=== PATIENT | male | born 1945 | race Caucasian/White ===

== ENCOUNTER → 2019-01-31 | Outpatient (CLI) | payer MEDICARE, OTHER ==
[~2019-01-31] MED LIST: REGADENOSON 0.4 MG/5 ML SYRINGE IV ONE
--- NOTE | 2019-01-31 11:09 | NM ---
EXAMINATION TYPE: NM stress lexiscan cardiolite DATE OF EXAM: 01/31/2019 COMPARISON: NONE HISTORY: Abnormal EKG TECHNIQUE: After the intravenous administration of 10.33 mCi Tc 99m Sestamibi - Cardiolite resting S PECT images acquired 65 minutes post injection. The patient received 0.4mg Lexiscan, 26.2 mCi Tc 99m Sestamibi - Stress images obtained [address] injection FINDINGS: Review of stress and rest SPECT images demonstrates no distinct perfusion abnormality. Gated analysi s shows normal wall motion with an estimated left ventricular ejection fraction of 54 %. IMPRESSION: No scintigraphic evidence for reversible ischemia.
--- NOTE | 2019-01-31 11:26 | EST ---
EXERCISE STRESS AGE: 73 SEX: M HT: 70" WT: 219 PROTOCOL: Lexiscan Cardiolite Study HEART RATE REST: 50 BLOOD PRESSURE REST: 157/89 MAXIMUM HEART RATE ACHIEVED: 62 MAXIMUM BLOOD PRESSURE: 138//83 INDICATIONS: Abnormal EKG CLINICAL INFORMATION: Baseline EKG revealed sinus mechanism with inferolateral ST and T-wave abnormality. With Lexiscan administration, heart rate changed from 50 to 62 beats per minute blood pressure changed from 157/89 to 138/83. Patient had transient shortness of breath and EKG remained inconclusive. By EKG criteria, this is an inconclusive Lexiscan stress test because of resting EKG changes. The nuclear scan results will be reported by the radiologist. MMENRIQUEL / IJN: [id number] /
== END | disposition home or self-care (01) ==
LOC: RADNMMAIN 07:31
PROVIDERS: ATTEND Internal Medicine
DX: R94.31 Abnormal electrocardiogram [ECG] [EKG] (principal)
CPT/HCPCS: 93017; 78452; A9500; J2785

== ENCOUNTER 2020-05-17 17:21 | Inpatient (IN) | payer MEDICARE ==
--- NOTE | 2020-05-17 17:43 | ED ---
General Adult HPI - General Chief complaint: Weakness Stated complaint: bradycardia Time Seen by Provider: 05/17/20 17:30 Source: patient, EMS Mode of arrival: EMS Limitations: no limitations - History of Present Illness Initial comments: Patient presents the ED by ambulance for evaluation. Patient states that he felt weak and lightheaded while in his bathroom this evening, so he laid down on the floor and his called for an ambulance for him. Patient smells of alcohol, and he admits to drinking "a couple glasses of wine" today. Patient denies any illicit drug use. Patient denies having any pain. Patient denies trauma or fall, fever or chills, headache, focal numbness/weakness/neuro deficit, visual changes, neck/back/extremity pain, chest pain, dyspnea, cough or cold symptoms, palpitations, syncope, abdominal pain, nausea/vomiting/diarrhea, bloody or melanotic stool, dysuria or urinary symptoms, or any other symptoms or complaints. Patient's blood glucose was within normal limits per EMS. - Related Data Home Medications Medication Instructions Recorded Confirmed Ascorbic Acid [Vitamin C] 500 mg PO DAILY 05/17/20 05/17/20 Atorvastatin Calcium [Lipitor] 20 mg PO DAILY 05/17/20 05/17/20 Cholecalciferol [Vitamin D3 (25 25 mcg PO BID 05/17/20 05/17/20 Mcg = 1000 Iu)] Metoprolol Tartrate [Lopressor] 50 mg PO BID 05/17/20 05/17/20 Telmisartan [Micardis] 40 mg PO DAILY 05/17/20 05/17/20 diphenhydrAMINE [Benadryl] 25 mg PO HS PRN 05/17/20 05/17/20 hydrALAZINE HCL [Apresoline] 50 mg PO BID 05/17/20 05/17/20 Allergies Allergy/AdvReac Type Severity Reaction Status Date / Time No Known Allergies Allergy Verified 05/17/20 19:16 Review of Systems ROS Statement: Those systems with pertinent positive or pertinent negative responses have been documented in the HPI. ROS Other: All systems not noted in ROS Statement are negative. Past Medical History Past Medical History: Hypertension History of Any Multi-Drug Resistant Organisms: None Reported Past Surgical History: No Surgical Hx Reported Past Psychological History: No Psychological Hx Reported Smoking Status: Never smoker Past Alcohol Use History: Daily, Heavy Past Drug Use History: None Reported General Exam Limitations: no limitations General appearance: alert, in no apparent distress, appears intoxicated, other (patient smells of alcohol) Head exam: Present: atraumatic, normocephalic Eye exam: Present: PERRL, EOMI ENT exam: Present: mucous membranes moist, TM's normal bilaterally Neck exam: Present: other (trachea is in midline). Absent: tenderness, m eningismus Respiratory exam: Present: normal lung sounds bilaterally. Absent: respiratory distress, wheezes, rales, rhonchi, stridor Cardiovascular Exam: Present: regular rate, normal rhythm, normal heart sounds, other (normal radial pulses bilaterally) GI/Abdominal exam: Present: soft. Absent: distended, tenderness, guarding Rectal exam: Present: normal inspection, normal rectal tone, other (Brown stool is noted in rectal vault). Absent: tenderness Extremities exam: Present: full ROM. Absent: tenderness, pedal edema, calf tenderness Back exam: Present: normal inspection. Absent: tenderness Neurological exam: Present: alert, oriented X3, CN II-XII intact. Absent: motor sensory deficit Psychiatric exam: Present: normal affect, normal mood Skin exam: Present: warm, dry, intact, normal color Course Vital Signs 05/17/20 05/17/20 05/17/20 17:25 17:31 18:00 Temperature 97.6 F Pulse Rate 68 62 Respiratory 20 19 Rate Blood Pressure 104/67 113/68 O2 Sat by Pulse 95 96 98 Oximetry 05/17/20 18:30 Temperature Pulse Rate 64 Respiratory 18 Rate Blood Pressure 110/69 O2 Sat by Pulse 96 Oximetry - Reevaluation(s) Reevaluation #1: 05/17/20 19:40 Case, H&P, test results and ED management were discussed with Dr. Hui. He accepts hospital admission. He agrees with GI consultation. He has no further recommendations at this time. 05/17/20 19:47 Patient remains alert and breathing comfortably. Patient remains hemodynamicall y stable. Patient denies development of any new symptoms while in the ED. Patient is aware of his test results, and he agrees with hospital admission at this time. EKG Findings - EKG Comments: EKG Findings:: sinus rhythm with first-degree AV block, ventricular rate of 65 bpm, no ectopy, VT interval of 210 ms, normal QRS duration, QTc interval of 474 ms, normal axis, nonspecific T-wave abnormality Medical Decision Making - Medical Decision Making I suspect that the patient's weakness/lightheadedness is likely secondary to a combination of anemia and alcohol intoxication. The etiology of the patient's anemia is unclear at this time. Patient denies having any bloody or melanotic bowel movements, and his stool Hemoccult is negative. Still, I suspect that a slower or chronic GI bleed is quite likely. Patient has been hemodynamically stable while in the ED. Patient has been hydrated with IV fluids in the ED, and a transfusion for packed RBCs has been ordered. Dr. Hui has accepted hospital admission, and an order for GI consultation was placed. - Lab Data Result diagrams: 05/17/20 18:03 05/17/20 18:03 Lab Results 05/17/20 05/17/20 05/17/20 Range/Units 18:03 18:03 18:03 WBC 7.6 (3.8-10.6) k/uL RBC 2.00 L (4.30-5.90) m/uL Hgb 6.5 L* (13.0-17.5) gm/dL Hct 19.2 L* (39.0-53.0) % MCV 95.6 (80.0-100.0) fL MCH 32.3 (25.0-35.0) pg MCHC 33.8 (31.0-37.0) g/dL RDW 12.6 (11.5-15.5) % Plt Count 383 (150-450) k/uL MPV 7.4 Neutrophils % 58 % Lymphocytes % 32 % Monocytes % 4 % Eosinophils % 2 % Basophils % 1 % Neutrophils # 4.4 (1.3-7.7) k/uL Lymphocytes # 2.4 (1.0-4.8) k/uL Monocytes # 0.3 (0-1.0) k/uL Eosinophils # 0.2 (0-0.7) k/uL Basophils # 0.1 (0-0.2) k/uL PT 10.7 (9.0-12.0) sec INR 1.0 (<1.2) APTT 21.4 L (22.0-30.0) sec Sodium 138 (137-145) mmol/L Potassium 3.7 (3.5-5.1) mmol/L Chloride 106 (98-107) mmol/L Carbon Dioxide 24 (22-30) mmol/L Anion Gap 8 mmol/L BUN 13 (9-20) mg/dL Creatinine 0.99 (0.66-1.25) mg/dL Est GFR (CKD-EPI)AfAm 87 (>60 ml/min/1.73 sqM) Est GFR (CKD-EPI)NonAf 75 (>60 ml/min/1.73 sqM) Glucose 111 H (74-99) mg/dL Plasma Lactic Acid Loki (0.7-2.0) mmol/L Calcium 7.8 L (8.4-10.2) mg/dL Magnesium 1.9 (1.6-2.3) mg/dL Total Bilirubin 0.5 (0.2-1.3) mg/dL AST 28 (17-59) U/L ALT 14 (4-49) U/L Alkaline Phosphatase 74 (38-126) U/L Troponin I (0.000-0.034) ng/mL NT-Pro-B Natriuret Pep pg/mL Total Protein 6.2 L (6.3-8.2) g/dL Albumin 3.1 L (3.5-5.0) g/dL Stool Occult Blood (Negative) Serum Alcohol 214 H* mg/dL Blood Type Recheck Bld Type Recheck Status Spec Expiration Date 05/17/20 05/17/20 05/17/20 Range/Units 18:03 18:03 18:03 WBC (3.8-10.6) k/uL RBC (4.30-5.90) m/uL Hgb (13.0-17.5) gm/dL Hct (39.0-53.0) % MCV (80.0-100.0) fL MCH (25.0-35.0) pg MCHC (31.0-37.0) g/dL RDW (11.5-15.5) % Plt Count (150-450) k/uL MPV Neutrophils % % Lymphocytes % % Monocytes % % Eosinophils % % Basophils % % Neutrophils # (1.3-7.7) k/uL Lymphocytes # (1.0-4.8) k/uL Monocytes # (0-1.0) k/uL Eosinophils # (0-0.7) k/uL Basophils # (0-0.2) k/uL PT (9.0-12.0) sec INR (<1.2) APTT (22.0-30.0) sec Sodium (137-145) mmol/L Potassium (3.5-5.1) mmol/L Chloride (98-107) mmol/L Carbon Dioxide (22-30) mmol/L Anion Gap mmol/L BUN (9-20) mg/dL Creatinine (0.66-1.25) mg/dL Est GFR (CKD-EPI)AfAm (>60 ml/min/1.73 sqM) Est GFR (CKD-EPI)NonAf (>60 ml/min/1.73 sqM) Glucose (74-99) mg/dL Plasma Lactic Acid Loki 2.7 H* (0.7-2.0) mmol/L Calcium (8.4-10.2) mg/dL Magnesium (1.6-2.3) mg/dL Total Bilirubin (0.2-1.3) mg/dL AST (17-59) U/L ALT (4-49) U/L Alkaline Phosphatase (38-126) U/L Troponin I <0.012 (0.000-0.034) ng/mL NT-Pro-B Natriuret Pep 166 pg/mL Total Protein (6.3-8.2) g/dL Albumin (3.5-5.0) g/dL Stool Occult Blood (Negative) Serum Alcohol mg/dL Blood Type Recheck Bld Type Recheck Status Spec Expiration Date 05/17/20 05/17/20 Range/Units 18:48 19:06 WBC (3.8-10.6) k/uL RBC (4.30-5.90) m/uL Hgb (13.0-17.5) gm/dL Hct (39.0-53.0) % MCV (80.0-100.0) fL MCH (25.0-35.0) pg MCHC (31.0-37.0) g/dL RDW (11.5-15.5) % Plt Count (150-450) k/uL MPV Neutrophils % % Lymphocytes % % Monocytes % % Eosinophils % % Basophils % % Neutrophils # (1.3-7.7) k/uL Lymphocytes # (1.0-4.8) k/uL Monocytes # (0-1.0) k/uL Eosinophils # (0-0.7) k/uL Basophils # (0-0.2) k/uL PT (9.0-12.0) sec INR (<1.2) APTT (22.0-30.0) sec Sodium (137-145) mmol/L Potassium (3.5-5.1) mmol/L Chloride (98-107) mmol/L Carbon Dioxide (22-30) mmol/L Anion Gap mmol/L BUN (9-20) mg/dL Creatinine (0.66-1.25) mg/dL Est GFR (CKD-EPI)AfAm (>60 ml/min/1.73 sqM) Est GFR (CKD-EPI)NonAf (>60 ml/min/1.73 sqM) Glucose (74-99) mg/dL Plasma Lactic Acid Loki (0.7-2.0) mmol/L Calcium (8.4-10.2) mg/dL Magnesium (1.6-2.3) mg/dL Total Bilirubin (0.2-1.3) mg/dL AST (17-59) U/L ALT (4-49) U/L Alkaline Phosphatase (38-126) U/L Troponin I (0.000-0.034) ng/mL NT-Pro-B Natriuret Pep pg/mL Total Protein (6.3-8.2) g/dL Albumin (3.5-5.0) g/dL Stool Occult Blood Negative (Negative) Serum Alcohol mg/dL Blood Type Recheck No Previous Record Bld Type Recheck Status CABO Indicated Spec Expiration Date 05/20/20202349 Disposition Clinical Impression: Generalized weakness, Anemia, Alcohol intoxication Disposition: ADMITTED IP TO THIS HOSP Condition: Stable Is patient prescribed a controlled substance at d/c from ED?: No Referrals: Swapnil Hui MD [Primary Care Provider] - 1-2 days Time of Disposition: 19:40
[2020-05-17] MEDS ORDERED: SODIUM CHLORIDE 0.9% 500 ML 500 ML IV STA (17:49)
[2020-05-17 18:15] LABS: Basophils # (A) 0.1 k/uL (0-0.2); Basophils % (A) 1 %; Eosinophils # (A) 0.2 k/uL (0-0.7); Eosinophils % (A) 2 %; Lymphocytes # (A) 2.4 k/uL (1.0-4.8); Lymphocytes % (A) 32 %; MCH 32.3 pg (25.0-35.0); MCHC 33.8 g/dL (31.0-37.0); MCV 95.6 fL (80.0-100.0); Mean Platelet Volume 7.4; Monocytes # (A) 0.3 k/uL (0-1.0); Monocytes % (A) 4 %; Neutrophils # (A) 4.4 k/uL (1.3-7.7); Neutrophils % (A) 58 %; Platelet Count 383 k/uL (150-450); RDW 12.6 % (11.5-15.5); WBC 7.6 k/uL (3.8-10.6)
[2020-05-17 18:20] LABS: HCT 19.2 % (39.0-53.0); HGB 6.5 gm/dL (13.0-17.5)
[2020-05-17] MEDS ORDERED: PANTOPRAZOLE 40 MG/10 ML VIAL IVP STA (18:27)
[2020-05-17 18:34] LABS: Partial Thromboplastin Time 21.4 sec (22.0-30.0); Prothrombin Time 10.7 sec (9.0-12.0)
[2020-05-17 18:36] LABS: Albumin 3.1 g/dL (3.5-5.0); Calcium 7.8 mg/dL (8.4-10.2); Magnesium 1.9 mg/dL (1.6-2.3); Potassium 3.7 mmol/L (3.5-5.1); Total Bilirubin 0.5 mg/dL (0.2-1.3); Total Protein 6.2 g/dL (6.3-8.2)
--- NOTE | 2020-05-17 18:47 | XR ---
EXAMINATION TYPE: XR chest 1V portable DATE OF EXAM: 05/17/2020 COMPARISON: NONE HISTORY: Weakness TECHNIQUE: Single view FINDINGS: There is no heart failure nor confluent pneumonic infiltrate. Costophrenic angles are clear . There are no hilar masses. There are chest leads. IMPRESSION: No active cardiopulmonary disease. Normal heart.
--- NOTE | 2020-05-17 18:56 | CT ---
EXAMINATION TYPE: CT brain wo con DATE OF EXAM: 05/17/2020 COMPARISON: None HISTORY: Weakness. CT DLP: 1277.4 mGycm Automated exposure control for dose reduction was used. There is cerebral cortical atrophy. There is no mass effect nor midline shift. There is no sign of in tracranial hemorrhage. Calvarium is intact. There is normal aeration of the mastoid sinuses. IMPRESSION: Negative exam. Cerebral atrophy. No acute intracranial abnormality.
[2020-05-17] MEDS: SODIUM CHLORIDE 0.9% 1,000 ML IV SCH (19:45)
[2020-05-17 20:01] LABS: Appearance,Urine Clear (Clear); Bilirubin,Urine Negative (Negative); Blood,Urine Negative (Negative); Color,Urine Light Yellow; Glucose,Urine (UA) Negative (Negative); Ketones,Urine Negative (Negative); Leukocyte Esterase,Urine Negative (Negative); Nitrite,Urine Negative (Negative); Protein,Urine Negative (Negative); Urobilinogen,Urine <2.0 mg/dL (<2.0)
[2020-05-17] MEDS ORDERED: diphenhydrAMINE 25 MG CAP PO PRN (22:59)
[2020-05-17] MEDS: hydrALAZINE HCL 50 MG TAB PO SCH (23:27)
[2020-05-17] MEDS: CHOLECALCIFEROL 25 MCG (1000 IU) TABLET PO SCH (23:27)
[2020-05-17] MEDS: METOPROLOL TARTRATE 50 MG TAB PO SCH (23:27)
[2020-05-18 01:55] LABS: Basophils % (A) 0 %; Eosinophils # (A) 0.1 k/uL (0-0.7); Eosinophils % (A) 1 %; HGB 14.7 gm/dL (13.0-17.5); Lymphocytes # (A) 1.4 k/uL (1.0-4.8); Lymphocytes % (A) 21 %; MCH 31.5 pg (25.0-35.0); MCHC 32.7 g/dL (31.0-37.0); MCV 96.3 fL (80.0-100.0); Mean Platelet Volume 7.6; Monocytes # (A) 0.3 k/uL (0-1.0); Monocytes % (A) 5 %; Neutrophils # (A) 4.7 k/uL (1.3-7.7); Neutrophils % (A) 71 %; Platelet Count 245 k/uL (150-450); RBC 4.67 m/uL (4.30-5.90); RDW 12.9 % (11.5-15.5); WBC 6.7 k/uL (3.8-10.6)
[2020-05-18] MEDS: SODIUM CHLORIDE 0.9% 1,000 ML IV SCH (07:03)
[2020-05-18 08:09] LABS: Basophils % (A) 0 %; Eosinophils # (A) 0.1 k/uL (0-0.7); Eosinophils % (A) 1 %; Lymphocytes # (A) 1.5 k/uL (1.0-4.8); Lymphocytes % (A) 18 %; MCH 31.1 pg (25.0-35.0); MCHC 32.6 g/dL (31.0-37.0); MCV 95.4 fL (80.0-100.0); Mean Platelet Volume 7.6; Monocytes # (A) 0.5 k/uL (0-1.0); Monocytes % (A) 6 %; Neutrophils # (A) 5.8 k/uL (1.3-7.7); Neutrophils % (A) 72 %; Platelet Count 250 k/uL (150-450); RBC 4.93 m/uL (4.30-5.90); RDW 13.4 % (11.5-15.5)
[2020-05-18 08:17] LABS: HGB 15.3 gm/dL (13.0-17.5)
[2020-05-18 08:18] LABS: ALT 16 U/L (4-49); AST 30 U/L (17-59); African American GFR (CKD) >90 (>60 ml/min/1.73 sqM); Albumin 3.7 g/dL (3.5-5.0); Alkaline Phosphatase 92 U/L (38-126); Anion Gap 9 mmol/L; Blood Urea Nitrogen 12 mg/dL (9-20); Calcium 8.8 mg/dL (8.4-10.2); Carbon Dioxide 24 mmol/L (22-30); Chloride 106 mmol/L (98-107); Glucose 97 mg/dL (74-99); Non-African American GFR(CKD) 81 (>60 ml/min/1.73 sqM); Potassium 4.2 mmol/L (3.5-5.1); Sodium 139 mmol/L (137-145); Total Bilirubin 1.4 mg/dL (0.2-1.3); Total Protein 7.1 g/dL (6.3-8.2)
[2020-05-18] MEDS: ASCORBIC ACID 500 MG TAB PO SCH (08:53)
[2020-05-18] MEDS: METOPROLOL TARTRATE 50 MG TAB PO SCH ×2 (08:53→20:32)
[2020-05-18] MEDS: CHOLECALCIFEROL 25 MCG (1000 IU) TABLET PO SCH ×2 (08:53→20:32)
[2020-05-18] MEDS: hydrALAZINE HCL 50 MG TAB PO SCH ×2 (08:53→20:32)
[2020-05-18] MEDS: LOSARTAN 50 MG TAB PO SCH (08:53)
[2020-05-18] MEDS: ATORVASTATIN 20 MG TAB PO SCH (08:54)
[2020-05-18 15:23] LABS: Basophils % (A) 1 %; Eosinophils # (A) 0.1 k/uL (0-0.7); Eosinophils % (A) 1 %; HCT 46.3 % (39.0-53.0); HGB 15.1 gm/dL (13.0-17.5); Lymphocytes # (A) 1.8 k/uL (1.0-4.8); Lymphocytes % (A) 22 %; MCH 31.1 pg (25.0-35.0); MCHC 32.6 g/dL (31.0-37.0); MCV 95.4 fL (80.0-100.0); Mean Platelet Volume 7.3; Monocytes # (A) 0.5 k/uL (0-1.0); Monocytes % (A) 5 %; Neutrophils # (A) 5.8 k/uL (1.3-7.7); Neutrophils % (A) 69 %; Platelet Count 236 k/uL (150-450); RBC 4.85 m/uL (4.30-5.90); WBC 8.4 k/uL (3.8-10.6)
--- NOTE | 2020-05-18 15:29 | P.HPIM ---
History of Present Illness H&P Date: 05/18/20 Chief Complaint: Presyncope. This is a 74-year-old male one of my patient with a previous medical history significant for hypertension and hypertensive cardio vascular disease with left ventricular hypertrophy, hyperlipidemia, benign prostatic hypertrophy, obesity, history of foot macular degeneration status post injection in the right eye on Sunday, patient was in his usual state of health about yesterday when he went to have his computer printer repaired and patient went back to [place] from [place] and brought it to cartridges to change because of the [employer] and he went to the bathroom while he was in the bathroom and felt extremely weak with minimal dizziness and lightheadedness, certainly to the ground, he could not get up because of so much weakness, so he ended up calling his she could not get him up so she called EMS and the patient was brought into the ER at [facility] where he was found to have a hemoglobin of 6.4 myriam prisingly without any prior symptoms of any bloody stool or any black stool or any other symptoms over the last few weeks, patient alcohol level was 214, he stated that he drank a couple glasses of wine but this is not unusual for him, he does not feel drunk, patient did receive 2 units of packed cells was admitted to the hospital for evaluation after repeating his blood count his hemoglobin was 15.6, making the first hemoglobin probably an error, patient does not have any sign or symptoms of bleeding at this time his lactic acid was slightly elevated initially did receive IV fluid, will be taken off IV fluid at this time as his lactic acid is back to normal, patient was seen in consultation by gastroenterology patient did have a recent cologuard in the office and was negative patient did have a colonoscopy about 3-4 years ago was totally normal, patient will be kept in the hospital for evaluation over the next 24 hours, repeat a CBC tonight as well as tomorrow morning if his hemoglobin is normal patient can be discharged home and follow up with me as an outpatient. Review of Systems Constitutional: Reports weakness, Denies anorexia, Denies chronic headaches, Denies lethargy, Denies weight gain Eyes: right blurred vision, right decreased vision Ears: bilateral: decreased hearing Ears, nose, mouth and throat: Denies dysphagia, Denies neck lump, Denies sore throat Cardiovascular: Denies chest pain, Denies decreased exercise tolerance, Denies dyspnea on exertion, Denies lightheadedness, Denies rapid heart beat, Denies shortness of breath, Denies syncope Respiratory: Denies congestion, Denies cough with sputum, Denies home oxygen, Denies sleep apnea, Denies snoring, Denies wheezing Gastrointestinal: Denies abdominal pain, Denies belching, Denies bloating, Denies BRBPR, Denies change in bowel habits, Denies coffee ground emesis, Denies diarrhea, Denies early satiety, Denies excessive gas, Denies heartburn, Denies loss of appetite, Denies melena, Denies nausea, Denies vomiting Genitourinary: Reports nocturia, Denies dysuria Musculoskeletal: Denies myalgias Musculoskeletal: absent: ankle pain, ankle stiffness, ankle swelling, elbow pain, elbow stiffness, elbow swelling, foot pain, foot stiffness, foot swelling, hand pain, hand stiffness, hand swelling, hip pain, hip stiffness, hip swelling, knee pain, knee stiffness, knee swelling, shoulder pain, shoulder stiffness, shoulder swelling, wrist pain, wrist stiffness, wrist swelling Integumentary: Denies pruritus, Denies rash Neurological: Denies numbness, Denies weakness Psychiatric: Denies anxiety, Denies depression Endocrine: Denies fatigue, Denies weight change Past Medical History Past Medical History: Eye Disorder, Hearing Disorder / Deafness, Hyperlipidemia, Hypertension, Osteoarthritis (OA), Prostate Disorder History of Any Multi-Drug Resistant Organisms: None Reported Past Surgical History: No Surgical Hx Reported Past Psychological History: No Psychological Hx Reported Smoking Status: Former smoker Past Alcohol Use History: Occasional Additional Past Alcohol Use History / Comment(s): occasional alcohol use. Drinks 3-4 times a week Past Drug Use History: None Reported - Past Family History Mother Family Medical History: Diabetes Mellitus (Mother at age 75 from TIAs and had history of diabetes mellitus type 2.) Father Family Medical History: Myocardial Infarction (OR) (Father at age of 59 from massive OR.) Brother(s) Family Medical History: No Reported History (Patient has one brother no reported history.) Son(s) Family Medical History: No Reported History (Patient has 2 sons no major medical problems.) Medications and Allergies Home Medications Medication Instructions Recorded Confirmed Type Ascorbic Acid [Vitamin C] 500 mg PO DAILY 05/17/20 05/17/20 History Atorvastatin Calcium [Lipitor] 20 mg PO DAILY 05/17/20 05/17/20 History Cholecalciferol [Vitamin D3 (25 25 mcg PO BID 05/17/20 05/17/20 History Mcg = 1000 Iu)] Metoprolol Tartrate [Lopressor] 50 mg PO BID 05/17/20 05/17/20 History Telmisartan [Micardis] 40 mg PO DAILY 05/17/20 05/17/20 History diphenhydrAMINE [Benadryl] 25 mg PO HS PRN 05/17/20 05/17/20 History hydrALAZINE HCL [Apresoline] 50 mg PO BID 05/17/20 05/17/20 History Allergies Allergy/AdvReac Type Severity Reaction Status Date / Time No Known Allergies Allergy Verified 05/17/20 19:16 Physical Exam Vitals: Vital Signs Temp Pulse Pulse Resp BP BP Pulse Ox 05/18/20 11:45 98 F 67 20 170/93 94 L 05/18/20 08:00 98.1 F 72 20 144/94 93 L 05/18/20 05:00 98.4 F 85 85 18 156/88 156/88 94 L 05/18/20 02:12 98.2 F 88 17 144/81 94 L 05/18/20 01:42 98.3 F 89 18 137/85 94 L 05/18/20 01:32 98.1 F 86 17 129/79 94 L 05/18/20 00:41 97.8 F 92 18 135/79 94 L 05/17/20 23:22 98.7 F 95 18 162/79 95 05/17/20 22:27 97.7 F 91 17 136/92 95 05/17/20 21:57 97.8 F 86 17 142/72 96 05/17/20 21:40 98.2 F 84 18 137/87 97 05/17/20 21:05 98.2 F 87 18 146/80 95 05/17/20 20:17 99 05/17/20 20:00 98.0 F 77 17 152/80 05/17/20 19:00 69 16 110/69 05/17/20 18:30 64 18 110/69 96 05/17/20 18:00 62 19 113/68 98 05/17/20 17:31 96 02/15/21 17:25 97.6 F 68 20 104/67 95 Intake and Output 05/17/20 05/18/20 05/18/20 22:59 06:59 14:59 Intake Total 0 620 Output Total 300 Balance -300 620 Intake: Blood Product 0 620 Rc As-1 Unit 0 310 [id number] Rc As-1 Unit 310 [id number] Output: Urine 300 Other: Voiding Method Toilet Toilet # Voids 1 Weight 97.522 kg 98.1 kg Physical examination: HEENT: Head is atraumatic, normocephalic, pupils were equal round reactive to light and recommendation, extraocular muscle movement were intact, conjunctivae were not pale mucous Marines of the mouth are moist. Neck: Supple no JVP. Chest: Decreased breath sounds at the bases, few rhonchi, no expiratory wheezes, no chest wall tenderness, no intercostal retractions. Heart: First heart sound is depressed, second heart sound is normal, there is systolic ejection murmur 2/6 located in the left sternal border. Abdomen: Soft, nontender, nondistended, positive bowel sounds, ventral hernia. Extremities: There is no edema, no calf tenderness, dorsalis pedis +2 bilaterally. Neurologic examinatio: Patient is awake alert and oriented 3, creatinine of 3- 12. He shouldn't, muscle power 4 out of 5 in upper and lower extremities bilaterally, deep tendon reflexes were normal. Results CBC & Chem 7: 05/18/20 07:30 05/18/20 07:30 Labs: Abnormal Lab Results - Last 24 Hours (Table) 05/17/20 05/17/20 05/17/20 Range/Units 18:03 18:03 18:03 RBC 2.00 L (4.30-5.90) m/uL Hgb 6.5 L* D (13.0-17.5) gm/dL Hct 19.2 L* (39.0-53.0) % APTT 21.4 L (22.0-30.0) sec Glucose 111 H (74-99) mg/dL Plasma Lactic Acid Loki (0.7-2.0) mmol/L Calcium 7.8 L (8.4-10.2) mg/dL Total Bilirubin (0.2-1.3) mg/dL Total Protein 6.2 L (6.3-8.2) g/dL Albumin 3.1 L (3.5-5.0) g/dL Serum Alcohol 214 H* mg/dL Crossmatch 05/17/20 05/17/20 05/17/20 Range/Units 18:03 19:06 21:13 RBC (4.30-5.90) m/uL Hgb (13.0-17.5) gm/dL Hct (39.0-53.0) % APTT (22.0-30.0) sec Glucose (74-99) mg/dL Plasma Lactic Acid Loki 2.7 H* 3.6 H* (0.7-2.0) mmol/L Calcium (8.4-10.2) mg/dL Total Bilirubin (0.2-1.3) mg/dL Total Protein (6.3-8.2) g/dL Albumin (3.5-5.0) g/dL Serum Alcohol mg/dL Crossmatch See Detail 05/18/20 05/18/20 Range/Units 01:24 07:30 RBC (4.30-5.90) m/uL Hgb (13.0-17.5) gm/dL Hct (39.0-53.0) % APTT (22.0-30.0) sec Glucose (74-99) mg/dL Plasma Lactic Acid Loki 3.1 H* (0.7-2.0) mmol/L Calcium (8.4-10.2) mg/dL Total Bilirubin 1.4 H (0.2-1.3) mg/dL Total Protein (6.3-8.2) g/dL Albumin (3.5-5.0) g/dL Serum Alcohol mg/dL Crossmatch Thrombosis Risk Factor Assmnt - DVT/VTE Prophylaxis DVT/VTE Prophylaxis: Pharmacologic Prophylaxis ordered, Mechanical Prophylaxis ordered - Choose All That Apply Each Factor Represents 1 point: Obesity (BMI >25) Each Risk Factor Represents 3 Points: Age 75 years or older Thrombosis Risk Factor Assessment Total Risk Factor Score: 4 Thrombosis Risk Factor Assessment Level: Moderate Risk Assessment and Plan Assessment: Assessment and plan: 1. Presyncope thank you etiology with reported hemoglobin of 6.4 however repeated hemoglobin came back at 15 after 2 units of packed red blood cells. Doubt any GI bleed at this point as the patient does not have any signs or symptoms of GI bleed. However we will keep the patient hospital for another 24 hours, monitor the CBC tonight and tomorrow morning, GI consultation from Dr. Ragland, patient did have cologuard recently in the office that was negative, he did have a colonoscopy about 3-4 years ago was normal. 2. Elevated alcohol level 214 . Patient does have a history of drinking wine on a regular basis. He does not have any history of alcoholic liver cirrhosis or any signs of liver disease. 3. Hypertension and hypertensive perivascular disease. Continue patient on hydralazine 50 mg orally twice every day, metoprolol 50 minute gram orally twice every day and losartan 100 mg orally once every day. 4. Hyperlipidemia. Continue atorvastatin 20 mg orally once every day. 5. 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 6. Obesity. Diet and exercise and weight loss. 7. Enlarged prostate. We'll monitor for urinary retention. 8. Reported low hemoglobin of 6.4 possibly and error. Patient is post 2 units of packed red blood cells. 9. DVT prophylaxis. Lovenox 40 mg subcutaneously every 24 hours. 10. GI prophylaxis. Continue Protonix 40 mg IV push daily. 11. Admitted to inpatient. Estimate a length of stay 2 midnights. 12. Full code.
--- NOTE | 2020-05-18 16:37 | CONS ---
CONSULTATION DATE OF DICTATION: 05/18/2020 REASON FOR CONSULTATION: Severe anemia. HISTORY OF PRESENT ILLNESS: The patient is a 74-year-old pleasant white male who came to the emergency room yesterday when he presented with near-syncope at home. He said that he was drinking some wine yesterday, had about 2 or 3 glasses, and subsequently he became very weak and dizzy and he almost passed out, but he did not lose consciousness. He called EMS and came to the emergency room. Routine labs in the ER showed a hemoglobin of 6.4 and he subsequently received 2 units of PRBC transfusion. Repeat CBC was 15.4 g/dL. The patient denies any abdominal pain. No nausea, no vomiting. No rectal bleeding or melena. No recent NSAID use. No prior history of peptic ulcer disease. He had a colonoscopy done by me about 4 years ago at [facility], and according to the patient it was within normal limits. He also stated that he had a Cologuard test last year that was negative. PAST MEDICAL HISTORY: Significant for hypertension, hyperlipidemia, prostate disorder. PAST SURGICAL HISTORY: Colonoscopy 4 years ago. FAMILY HISTORY: Mother with diabetes mellitus and TIA. Father had coronary artery disease. MEDICATIONS: Medications at home include vitamin C, Lipitor, vitamin D3, Lopressor, Micardis, Benadryl, apresoline. ALLERGIES: NONE. REVIEW OF SYSTEMS: CARDIOPULMONARY: No chest pain or shortness of breath. GENITOURINARY: No dysuria or hematuria. MUSCULOSKELETAL: Unremarkable. SKIN: Unremarkable. ENDOCRINE: Unremarkable. PSYCHIATRIC: Unremarkable. NEUROLOGY: Episode of near-syncope that has resolved. ENT/VISION: Unremarkable. CONSTITUTIONAL: No recent weight loss. No fever, chills, night sweats. HEMATOLOGY: Hemoglobin was low, but on repeat it was 15.3. PHYSICAL EXAMINATION: He appears comfortable. No apparent distress. VITAL SIGNS: Stable. Blood pressure is 172/93, pulse rate 67, temperature 98. HEENT examination unremarkable. Conjunctivae pink. Sclerae anicteric. Oral cavity no lesions. NECK: No JVD or lymph node enlargement. CHEST: Clear to auscultation. HEART: Regular rate and rhythm. ABDOMEN: Soft. Bowel sounds are positive. No organomegaly. Slightly obese. EXTREMITIES: No pedal edema. NEUROLOGIC: Alert and oriented x3. No focal deficits. LABS: WBC 7.6, hemoglobin 6.5, MCV 95, platelets normal. INR 10.7. INR is 1. AST, ALT, T- bilirubin and alkaline phosphatase are within normal limits. Lactic acid was 3.6. Repeat hemoglobin after 2 units of PRBC transfusion was 15.1 g/dL. IMPRESSION: 1. This is a patient who presented to the hospital with near-syncope. In the ER he had labs with a hemoglobin of 6.5. Subsequently he got 2 units of PRBC transfusion and repeat hemoglobin was 15.3 g/dL. He did have some labs earlier in the day yesterday, at which time his hemoglobin was 14.7. It is very likely that one of the readings of the hemoglobin was false. Clinically he does not have any symptoms suggestive of acute GI bleed. 2. History of hypertension. 3. History of hyperlipidemia. 4. Near-syncope, resolved. 5. History of alcohol use. RECOMMENDATIONS: 1. Will repeat CBC today, and if the hemoglobin is once again within normal range, no plans for any endoscopic intervention. 2. Continue with symptomatic and supportive care. 3. Abstinence from alcohol. 4. Will follow with you closely. Thank you for this consultation. MMODL / IJN: [id number] /
[2020-05-19 08:11] LABS: Basophils % (A) 0 %; Eosinophils # (A) 0.1 k/uL (0-0.7); Eosinophils % (A) 2 %; HCT 47.5 % (39.0-53.0); HGB 15.4 gm/dL (13.0-17.5); Lymphocytes # (A) 1.7 k/uL (1.0-4.8); Lymphocytes % (A) 21 %; MCH 31.2 pg (25.0-35.0); MCHC 32.5 g/dL (31.0-37.0); MCV 95.9 fL (80.0-100.0); Mean Platelet Volume 7.5; Monocytes # (A) 0.5 k/uL (0-1.0); Monocytes % (A) 6 %; Neutrophils # (A) 5.7 k/uL (1.3-7.7); Neutrophils % (A) 70 %; Platelet Count 242 k/uL (150-450); RBC 4.95 m/uL (4.30-5.90); RDW 12.9 % (11.5-15.5); WBC 8.1 k/uL (3.8-10.6)
[2020-05-19 08:12] VITALS: RESP 16; TEMP 98
[2020-05-19 08:18] LABS: Albumin 3.8 g/dL (3.5-5.0); Potassium 3.6 mmol/L (3.5-5.1); Total Bilirubin 1.5 mg/dL (0.2-1.3)
[2020-05-19] MEDS ORDERED: ENOXAPARIN 40 MG/0.4 ML SYRINGE SQ SCH (09:00)
[2020-05-19] MEDS ORDERED: PANTOPRAZOLE 40 MG/10 ML VIAL IVP SCH (09:00)
[2020-05-19] MEDS: ASCORBIC ACID 500 MG TAB PO SCH (09:03)
[2020-05-19] MEDS: hydrALAZINE HCL 50 MG TAB PO SCH (09:03)
[2020-05-19] MEDS: CHOLECALCIFEROL 25 MCG (1000 IU) TABLET PO SCH (09:03)
[2020-05-19] MEDS: ATORVASTATIN 20 MG TAB PO SCH (09:03)
[2020-05-19] MEDS: LOSARTAN 50 MG TAB PO SCH (09:03)
[2020-05-19] MEDS: METOPROLOL TARTRATE 50 MG TAB PO SCH (09:03)
[2020-05-19 11:34] VITALS: BP 170/90; PULSE 67
[2020-05-19] MEDS ORDERED: hydrALAZINE HCL 25 MG TAB PO STA (11:38)
--- NOTE | 2020-05-19 12:27 | P.PN ---
Subjective Progress Note Date: 05/19/20 Principal diagnosis: Anemia This is a pleasant 74-year-old male patient who came into the emergency department for syncope and fall. He had admitted to having some wine yesterday prior to coming in. He denied any reports of any melena, rectal bleeding, nausea, vomiting, or hematemesis. He had a hemoglobin that dropped to 6.5 and therefore received 2 units of PRBC transfusion. His hemoglobin has been stable and continues to be stable at 15.4 today. He denies any abdominal pain, nausea, or vomiting. He states he has not had any dark stools or rectal bleeding this hospital admission. Objective - Vital Signs Vital signs: Vital Signs Temp 98.0 F 05/19/20 08:00 Pulse 81 05/19/20 08:00 Resp 16 05/19/20 08:00 BP 187/97 05/19/20 08:00 Pulse Ox 94 L 05/19/20 08:00 Intake & Output 05/18/20 05/19/20 05/19/20 18:59 06:59 18:59 Intake Total 1322 Balance 1322 Weight 97.3 kg Intake: Intake, IV Titration 800 Amount Sodium Chloride 0.9% 1, 800 000 ml @ 100 mls/hr IV . Q10H [facility] Rx#:[id number] Oral 522 Other: Voiding Method Toilet # Voids 1 - Exam General appearance: The patient is alert, oriented, appears in no acute distress. HET: Head is normocephalic and atraumatic. Conjunctiva pink. Sclera anicteric. Neck: Supple without lymphadenopathy. Abdomen: Soft, nontender, nondistended with bowel sounds. No guarding or rigidity. Extremities: Normal skin color and turgor. No pedal edema Skin: No rashes, no jaundice Neurological: No focal deficits. Alert and oriented 3. - Labs CBC & Chem 7: 05/19/20 07:23 05/19/20 07:23 Labs: Abnormal Lab Results - Last 24 Hours (Table) 05/19/20 Range/Units 07:23 Glucose 122 H (74-99) mg/dL Total Bilirubin 1.5 H (0.2-1.3) mg/dL Assessment and Plan (1) Syncope Narrative/Plan: The patient who presented to the hospital with near syncope. Admission he was found to have a hemoglobin of 6.5. Subsequently he got 2 units of PRBCs transfusion and repeat hemoglobin was 15.3. He did have some labs earlier in the day yesterday which time his hemoglobin was 14.7. He is very likely that one of the readings hemoglobin was also. Clinically he does not have any symptoms suggestive of acute GI bleed. These repeat hemoglobin is 15.4. He continues to state he has no abdominal pain, nausea, vomiting, or blood in stools. No acute changes through the night. Status: Acute Code(s): R55 - SYNCOPE AND COLLAPSE SNOMED Code(s): 809847471 (2) Alcohol intoxication Status: Acute Code(s): F10.929 - ALCOHOL USE, UNSPECIFIED WITH INTOXICATION, UNSPECIFIED SNOMED Code(s): 16110014 (3) Generalized weakness Status: Acute Code(s): R53.1 - WEAKNESS SNOMED Code(s): 78415228 Plan: 1. Supportive care 2. Repeat CBC completed with a hemoglobin of 15.4 3. No plans for endoscopic intervention 4. Abstinence from alcohol 5. Patient may be discharged home from a gastroenterology standpoint Thank you for this consultation Dr. Adonis Ragland I agree with the dictator's note, documented as a scribe by Denise Barker.
--- NOTE | 2020-05-21 09:22 | P.DS ---
Providers Date of admission: 05/17/20 19:40 Expected date of discharge: 05/19/20 Attending physician: Swapnil Hui Consults: 05/17/20 19:41 Consult Physician Urgent Consulting Provider: Dominique Ragland Consult Reason/Comments: anemia Do you want consulting provider notified?: Yes Primary care physician: Swapnil Hui [facility] Hospital Course: This is a 74-year-old male one of my patient with a previous medical history significant for hypertension and hypertensive cardio vascular disease with left ventricular hypertrophy, hyperlipidemia, benign prostatic hypertrophy, obesity, history of foot macular degeneration status post injection in the right eye on Sunday, patient was in his usual state of health about yesterday when he went to have his computer printer repaired and patient went back to [place] from [place] and brought it to cartridges to change because of the [employer] and he went to the bathroom while he was in the bathroom and felt extremely weak with minimal dizziness and lightheadedness, certainly to the ground, he could not get up because of so much weakness, so he ended up calling his she could not get him up so she called EMS and the patient was brought into the ER at [facility] where he was found to have a hemoglobin of 6.4 surprisingly without any prior symptoms of any bloody stool or any black stool or any other symptoms over the last few weeks, patient alcohol level was 214, he stated that he drank a couple glasses of wine but this is not unusual for him, he does not feel drunk, patient did receive 2 units of packed cells was admitted to the hospital for evaluation after repeating his blood count his hemoglobin was 15.6, making the first hemoglobin probably an error, patient does not have any sign or symptoms of bleeding at this time his lactic acid was slightly elevated initially did receive IV fluid, will be taken off IV fluid at this time as his lactic acid is back to normal, patient was seen in consultation by gastroenterology patient did have a recent cologuard in the office and was negative patient did have a colonoscopy about 3-4 years ago was totally normal, patient will be kept in the hospital for evaluation over the next 24 hours, repeat a CBC tonight as well as tomorrow morning if his hemoglobin is normal patient can be discharged home and follow up with me as an outpatient. 05/19: Repeat hemoglobin 15.4. Electrolytes within normal limits. Creatinine 0.98. Patient has had no bleeding or dark stools. Patient has been followed by GI with no plan for intervention. Patient has been advised alcohol abstinence. Patient will be discharged home today in stable condition. Discharge diagnoses: 1. Presyncope unclear etiology, GI bleed has been ruled out. Presyncope possibly related to alcohol use. 2. Elevated alcohol level 214 . 3. Hypertension and hypertensive perivascular disease. 4. Hyperlipidemia. 5. 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 6. Obesity. 7. Enlarged prostate. 8. Reported low hemoglobin of 6.4 possibly an error. Discharge plan: Home Impression and plan of care have been directed as dictated by the signing physician. Martha Israel nurse practitioner acting as scribe for signing physician. Patient Condition at Discharge: Good Plan - Discharge Summary Discharge Rx Participant: No New Discharge Prescriptions: Continue Cholecalciferol [Vitamin D3 (25 Mcg = 1000 Iu)] 25 mcg PO BID diphenhydrAMINE [Benadryl] 25 mg PO HS PRN PRN Reason: Congestion Telmisartan [Micardis] 40 mg PO DAILY Metoprolol Tartrate [Lopressor] 50 mg PO BID Ascorbic Acid [Vitamin C] 500 mg PO DAILY hydrALAZINE HCL [Apresoline] 50 mg PO BID Atorvastatin Calcium [Lipitor] 20 mg PO DAILY Discharge Medication List Ascorbic Acid [Vitamin C] 500 mg PO DAILY 05/17/20 [History] Atorvastatin Calcium [Lipitor] 20 mg PO DAILY 05/17/20 [History] Cholecalciferol [Vitamin D3 (25 Mcg = 1000 Iu)] 25 mcg PO BID 05/17/20 [History] Metoprolol Tartrate [Lopressor] 50 mg PO BID 05/17/20 [History] Telmisartan [Micardis] 40 mg PO DAILY 05/17/20 [History] diphenhydrAMINE [Benadryl] 25 mg PO HS PRN 05/17/20 [History] hydrALAZINE HCL [Apresoline] 50 mg PO BID 05/17/20 [History] Follow up Appointment(s)/Referral(s): Swapnil Hui MD [Primary Care Provider] - 05/26/20 11:00 am Patient Instructions/Handouts: Anemia (DC) Discharge Disposition: HOME SELF-CARE
== END 2020-05-19 12:06 | disposition home or self-care (01) | DRG 812 ==
LOC: EC 17:21 → 3SCARD 19:40
PROVIDERS: ADMIT Internal Medicine; ATTEND Internal Medicine
PROC: 30233N1 Transfusion of Nonautologous Red Blood Cells into Peripheral Vein, Percutaneous Approach (ICD-10-PCS; principal; 2020-05-18)
DX: D64.9 Anemia, unspecified (principal); F10.129 Alcohol abuse with intoxication, unspecified; I11.9 Hypertensive heart disease without heart failure; E78.5 Hyperlipidemia, unspecified; E66.9 Obesity, unspecified; Y90.7 Blood alcohol level of 200-239 mg/100 ml; H91.90 Unspecified hearing loss, unspecified ear; M19.90 Unspecified osteoarthritis, unspecified site; H35.3210 Exudative age-related macular degeneration, right eye, stage unspecified; Z20.822 Contact with and (suspected) exposure to COVID-19; N40.0 Benign prostatic hyperplasia without lower urinary tract symptoms; Z79.899 Other long term (current) drug therapy; Z87.891 Personal history of nicotine dependence; Z83.3 Family history of diabetes mellitus; Z82.3 Family history of stroke; Z82.49 Family history of ischemic heart disease and other diseases of the circulatory system; Z98.890 Other specified postprocedural states; Z68.30 Body mass index [BMI] 30.0-30.9, adult
CPT/HCPCS: 36415; 70450; 71045; 80053; 80320; 81003; 82272; 83605; 83735; 83880; 84484; 85025; 85610; 85730; 86850; 86900; 86901; 86920; 87635; 93005; 96361; 96374; 99285

== ENCOUNTER → 2022-02-08 | Outpatient (CLI) | payer MEDICARE ==
--- NOTE | 2022-02-08 15:06 | US ---
EXAMINATION TYPE: US carotid duplex BILAT DATE OF EXAM: 02/08/2022 COMPARISON: NONE CLINICAL HISTORY: I65.23 CAROTID STENOSIS. TECHNIQUE: Carotid duplex ultrasound examination. Indirect Doppler criteria was utilized. FINDINGS: EXAM MEASUREMENTS: RIGHT: Peak Systolic Velocity (PSV) cm/sec ----- Right CCA: 54.6 ----- Right ICA: 56.1 ----- Right ECA: 66.0 ICA/CCA ratio: 1.0 RIGHT: End Diastole cm/sec ----- Right CCA: 11.9 ----- Right ICA: 16.8 ----- Right ECA: 7.5 LEFT: Peak Systolic Velocity (PSV) cm/sec ----- Left CCA: 55.1 ----- Left ICA: 52.2 ----- Left ECA: 49.4 ICA/CCA ratio: 0.9 LEFT: End Diastole cm/sec ----- Left CCA: 13.7 ----- Left ICA: 12.3 ----- Left ECA: 9.2 VERTEBRALS (direction of flow): Right Vertebral: Antegrade Left Vertebral: Antegrade Rhythm: Normal SEWER PIPE SORTER NOTES: No significant stenosis seen IMPRESSION: No hemodynamically significant stenosis in either internal carotid artery. Criteria for Assigning % of Stenosis / Diameter reduction (Estimation based on the indirect measurements of the internal carotid artery velocities (ICA PSV). 1. Normal (no stenosis)=ICA PSV < 125 cm/s: ratio < 2.0: ICA EDV<40 cm/s. 2. Less than 50% stenosis=ICA PSV < 125 cm/s: ratio < 2.0: ICA EDV<40 cm/s. 3. 50 to 69% stenosis=ICA PSV of 125 to 230 cm/s: ration 2.0 ? 4.0: ICA EDV 40-100 cm/s. 4. Greater than 70% stenosis to near occlusion= ICA PSV > 230 cm/s: ratio > 4.0: ICA EDV > 100 cm/s. 5. Near occlusion= ICA PSV velocities may be low or undetectable: variable ratio and ICA EDV. 6. Total occlusion=unable to detect flow.
== END | disposition home or self-care (01) ==
LOC: RADUSWWP 14:00
PROVIDERS: ATTEND Internal Medicine
DX: Z13.6 Encounter for screening for cardiovascular disorders (principal)
CPT/HCPCS: 93880

== ENCOUNTER → 2022-07-27 | Outpatient (CLI) | payer MEDICARE ==
[2022-07-27 19:28] LABS: Basophils # (A) 0.03 X 10*3/uL (0.00-0.10); Basophils % (A) 0.4 %; Eosinophils # (A) 0.24 X 10*3/uL (0.04-0.35); Eosinophils % (A) 3.3 %; HGB 13.7 g/dL (13.0-17.0); Immature Grans, Automated 0.4 %; Lymphocytes # (A) 2.26 X 10*3/uL (0.90-5.00); MCH 30.7 pg (27.0-32.0); MCHC 32.6 g/dL (32.0-37.0); MCV 94.2 fL (80.0-97.0); Mean Platelet Volume 9.9 fL (9.5-12.2); Monocytes # (A) 0.68 X 10*3/uL (0.20-1.00); Monocytes % (A) 9.3 %; NRBC Per 100 WBC 0 /100 WBCS (0.0-0.0); Neutrophils # (A) 4.06 X 10*3/uL (1.80-7.70); Neutrophils % (A) 55.6 %; Platelet Count 339 X 10*3/uL (140-440); RBC 4.46 X 10*6/uL (4.40-5.60); RDW 12.4 % (11.5-14.5)
[2022-07-27 20:47] LABS: ALT 11 U/L (10-49); AST 22 U/L (14-35); African American GFR (CKD) 71.8 (60.0-200.0); Albumin 4.2 g/dL (3.8-4.9); Albumin/Globulin Ratio 1.49 (1.60-3.17); Alkaline Phosphatase 85 U/L (41-126); BUN/Creat Ratio 13.91 Ratio (12.00-20.00); Calcium 9.6 mg/dL (8.7-10.3); Carbon Dioxide 29.4 mmol/L (20.0-27.5); Chloride 93 mmol/L (96-109); Chol/HDL Ratio 3.55 Ratio; Globulin 2.8 g/dL (1.6-3.3); Glucose 101 mg/dL (70-110); LDL Cholesterol,Calculated 36.5 mg/dL (0.0-131.0); Magnesium 1.9 mg/dL (1.5-2.4); Non-African American GFR(CKD) 61.9 (60.0-200.0); Potassium 3.8 mmol/L (3.5-5.5); Sodium 135 mmol/L (135-145)
== END | disposition home or self-care (01) ==
LOC: LABWHC1 09:16
PROVIDERS: ATTEND Internal Medicine
DX: Z00.00 Encounter for general adult medical examination without abnormal findings (principal); I10 Essential (primary) hypertension; E78.2 Mixed hyperlipidemia
CPT/HCPCS: 36415; 80053; 80061; 83036; 83735; 84439; 84443; 85025

== ENCOUNTER → 2022-11-08 | Outpatient (CLI) | payer MEDICARE | END | disposition home or self-care (01) | LOC: LABWHC1 10:45 | PROVIDERS: ATTEND Urology | DX: R97.20 Elevated prostate specific antigen [PSA] (principal) | CPT/HCPCS: 36415; 84153 ==

== ENCOUNTER → 2023-06-08 | Outpatient (CLI) | payer MEDICARE ==
--- NOTE | 2023-06-10 15:11 | MR ---
EXAMINATION TYPE: MR Prostate wo/w con DATE OF EXAM: 06/08/2023 8:08 AM COMPARISON: None. CLINICAL INDICATION:Male, 77 years old with history of R97.20 ELEVATED PROSTATE SPECIFIC ANTIGEN; Francy vated PSA. TECHNIQUE: Multi-planar, multi-sequence imaging of the pelvis is performed prior to and following the uncomplicated administration of bolus intravenous gadolinium. CONTRAST: 10 Gadavist Interpretive Criteria: PI-RADS v2.1 SERUM PSA: 9.4 on 05/2023. 7.3 on 10/2022. r SURGICAL PATHOLOGY: No data available. FINDINGS: Prostatic dimensions: 6.3 x 9.0 x 5.5 cm. Ellipsoid Volume:163.28 (PSA density=0.06 ng/mL/mL) CENTRAL GLAND (Central and Transition Zones/CZ+TZ): Multiple bilateral, heterogenous appearing hypertrophic stromal nodules, without suspicious lesion. M edian lobe hypertrophy with protrusion into the base of the bladder. (PI-RADS 2) PERIPHERAL ZONE (PZ): Left peripheral gland apex 15 x 15 x 19 mm high DWI and low ADC/low T2 signal lesion (PI-RADS 5) ther e is extension along the capsule at least 19 mm on axial imaging and 17 mm in sagittal imaging. There is mild bulging of the capsule without definitive extra-axial capsular extension at this time. SEMINAL VESICLES (SV): Symmetric and unremarkable. PERIPROSTATIC TISSUES: Unremarkable. LYMPH NODES: Left Mesorectal fascia lymph node measuring 11 mm REMAINING PELVIS: Bladder wall is within normal limits given distention. No abnormal free or organized intrapelvic fluid collection. No pathologic bowel dilation or mural thickening. No hernia visualized OSSEOUS STRUCTURES: No suspicious osseous abnormality. IMPRESSION: 1. PI-RADS 5 lesion in the left peripheral zone apex near midline measuring 15 x 15 x 19 mm with enla rged left mesorectal lymph node concerning for metastatic disease. No definitive osseous lesions at this time. Maximum PI-RADS score: 5. 2. Substantial BPH, estimated gland volume 163.28 mL.
== END | disposition home or self-care (01) ==
LOC: RADMRIMAIN 06:31
PROVIDERS: ATTEND Urology
DX: R97.20 Elevated prostate specific antigen [PSA] (principal); R59.9 Enlarged lymph nodes, unspecified; N40.0 Benign prostatic hyperplasia without lower urinary tract symptoms
CPT/HCPCS: 72197; A9585

== ENCOUNTER → 2023-07-11 | Outpatient (CLI) | payer MEDICARE ==
[2023-07-11 16:06] LABS: BUN/Creat Ratio 13.82 Ratio (12.00-20.00); Blood Urea Nitrogen 15.2 mg/dL (9.0-27.0); Calcium 9.7 mg/dL (8.7-10.3); Carbon Dioxide 30.6 mmol/L (21.6-31.8); Chloride 92 mmol/L (96-109); Glucose 108 mg/dL (70-110); Potassium 3.7 mmol/L (3.5-5.5); Sodium 133 mmol/L (135-145)
[2023-07-11 16:24] LABS: Basophils # (A) 0.04 X 10*3/uL (0.00-0.10); Basophils % (A) 0.6 %; Eosinophils # (A) 0.13 X 10*3/uL (0.04-0.35); Eosinophils % (A) 1.9 %; HCT 43.3 % (39.6-50.0); HGB 14.5 g/dL (13.0-17.0); Lymphocytes # (A) 1.77 X 10*3/uL (0.90-5.00); Lymphocytes % (A) 25.9 %; MCHC 33.5 g/dL (32.0-37.0); MCV 95.6 FL (80.0-97.0); Mean Platelet Volume 9.4 FL (9.5-12.2); Monocytes # (A) 0.63 X 10*3/uL (0.20-1.00); Monocytes % (A) 9.2 %; NRBC Per 100 WBC 0 X 10*3/uL (0.00-0.01); Neutrophils # (A) 4.24 X 10*3/uL (1.80-7.70); Neutrophils % (A) 62.1 %; Platelet Count 320 X 10*3/uL (140-440); RBC 4.53 X 10*6/uL (4.40-5.60); RDW 12.3 % (11.5-14.5); WBC 6.83 X 10*3/uL (4.50-10.00)
== END | disposition home or self-care (01) ==
LOC: LABPAT 10:50
PROVIDERS: ATTEND Urology
DX: Z01.812 Encounter for preprocedural laboratory examination (principal); R97.20 Elevated prostate specific antigen [PSA]
CPT/HCPCS: 36415; 80048; 85025

== ENCOUNTER 2023-07-19 10:51 | Day surgery (SDC) | payer MEDICARE ==
--- NOTE | 2023-07-15 21:41 | P.GSHP ---
History of Present Illness H&P Date: 07/15/23 Chief Complaint: Elevated PSA level The patient is a 77-year-old white male with no family history of prostate cancer. His PSA level has been persistently elevated and was most recently 9.4. He has undergone prostate ultrasound with biopsies on 2 previous occasions, most recently in 2017 at [place] [facility]. Biopsies of show no evidence of malignancy. He has a known left base prostate nodule. Recent MRI has shown a 15 x 15 x 19 mm PI-RADS 5 lesion within the left peripheral zone at the apex. There is also an enlarged mesorectal lymph node concerning for metastatic disease. Estimated prostate volume was 163.28 cc. He now comes for MRI fusion biopsies of the prostate. - Cardiovascular Cardiovascular: Reports high blood pressure - Genitourinary (Male) Genitourinary: Reports nocturia, Denies dysuria, Denies hematuria Past Medical History Past Medical History: Eye Disorder, Hearing Disorder / Deafness, Hyperlipidemia, Hypertension, Osteoarthritis (OA), Prostate Disorder History of Any Multi-Drug Resistant Organisms: None Reported Past Surgical History: No Surgical Hx Reported Past Psychological History: No Psychological Hx Reported Smoking Status: Former smoker Past Alcohol Use History: Occasional Additional Past Alcohol Use History / Comment(s): occasional alcohol use. Drinks 3-4 times a week Past Drug Use History: None Reported - Past Family History Mother Family Medical History: Diabetes Mellitus (Mother at age 75 from TIAs and had history of diabetes mellitus type 2.) Father Family Medical History: Myocardial Infarction (MS) (Father at age of 59 from massive MS.) Brother(s) Family Medical History: No Reported History (Patient has one brother no reported history.) Son(s) Family Medical History: No Reported History (Patient has 2 sons no major medical problems.) Medications and Allergies Home Medications Medication Instructions Recorded Confirmed Type Ascorbic Acid [Vitamin C] 500 mg PO DAILY 05/17/20 05/17/20 History Atorvastatin Calcium [Lipitor] 20 mg PO DAILY 05/17/20 05/17/20 History Cholecalciferol [Vitamin D3 (25 25 mcg PO BID 05/17/20 05/17/20 History Mcg = 1000 Iu)] Metoprolol Tartrate [Lopressor] 50 mg PO BID 05/17/20 05/17/20 History Telmisartan [Micardis] 40 mg PO DAILY 05/17/20 05/17/20 History diphenhydrAMINE [Benadryl] 25 mg PO HS PRN 05/17/20 05/17/20 History hydrALAZINE HCL [Apresoline] 50 mg PO BID 05/17/20 05/17/20 History Allergies Allergy/AdvReac Type Severity Reaction Status Date / Time No Known Allergies Allergy Verified 05/17/20 19:16 Surgical - Exam - General well developed, well nourished, no distress - Respiratory normal respiratory effort - Abdomen Abdomen: soft, non tender, no guarding, no rigid, no rebound - Genitourinary normal penis with no external lesions, testicles non-tender - Rectum Rectum: normal sphincter tone, no masses, other (Enlarged prostate with nodule at left base) - Psychiatric oriented to time, oriented to person, oriented to place, speech is normal, memory intact Assessment and Plan (1) Elevated prostate specific antigen [PSA] Status: Acute Code(s): R97.20 - ELEVATED PROSTATE SPECIFIC ANTIGEN [PSA] SNOMED Code(s): 638751955 Plan: The patient will undergo MRI-Ultrasound fusion transrectal biopsies of the prostate. The procedure has been reviewed in detail with the patient. He has been made aware of potential risks, which include anesthesia, bleeding, and infection. He is also aware that a negative biopsy does not completely rule out prostate cancer.
[~2023-07-19 10:51] MED LIST changes: -REGADENOSON 0.4 MG/5 ML SYRINGE IV ONE; +fentaNYL (PF) 50 MCG/ML 2 ML AMP IV PRN
[2023-07-19] MEDS: GENTAMICIN 40 MG/ML 2 ML VIAL IM PRN (11:48)
[2023-07-19] MEDS: LACTATED RINGERS 1,000 ML IV SCH (11:48)
[2023-07-19 12:11] VITALS: RESP 16; TEMP 98.3
[2023-07-19] MEDS ORDERED: fentaNYL (PF) 50 MCG/ML 2 ML AMP ONE (13:43)
[2023-07-19] MEDS ORDERED: PROPOFOL 10 MG/ML 20 ML VIAL IV ONE (13:43)
[2023-07-19] MEDS ORDERED: MIDAZOLAM 2 MG/2 ML VIAL ONE (13:43)
--- NOTE | 2023-07-19 14:17 | P.OP ---
Date of Procedure: 07/19/23 Preoperative Diagnosis: Elevated PSA level Postoperative Diagnosis: Same Procedure(s) Performed: MRI ultrasound-guided fusion biopsies of the prostate Anesthesia: MAC Surgeon: Braxton Jimenez Estimated Blood Loss (ml): 5 IV fluids (ml): 300 Pathology: other (Prostate biopsies) Condition: stable Disposition: PACU Indications for Procedure: The patient is a 77-year-old white male with no family history of prostate cancer. His PSA level has been persistently elevated and was most recently 9.4. He has undergone prostate ultrasound with biopsies on 2 previous occasions, most recently in 2017 at [place] [facility]. Biopsies of show no evidence of malignancy. He has a known left base prostate nodule. Recent MRI has shown a 15 x 15 x 19 mm PI-RADS 5 lesion within the left peripheral zone at the apex. There is also an enlarged mesorectal lymph node concerning for metastatic disease. Estimated prostate volume was 163.28 cc. He now comes for MRI fusion biopsies of the prostate. Operative Findings: Prostate volume 51.6 cc. 12 template biopsies obtained in addition to 3 biopsies of the left peripheral zone target lesion. Description of Procedure: The patient was taken to the operating room and placed in the left lateral decubitus position. GERALDINE revealed the prostate to be moderately enlarged but smooth. The [employer] transrectal ultrasound probe was placed intrarectally. It was then placed within the stand of the [employer] MRI/TRUS Fusion for Prostate Biopsy system. The prostate was imaged in both the axial and sagittal planes, revealing a prostate volume of 51.6 mL. Using the Biopty gun, 3 biopsies were obtained from the target lesion located within the left mid posteromedial peripheral zone. The remaining 12 biopsies of the peripheral zone were obtained utilizing a standard template. Once the procedure was completed, the ultrasound probe was removed. The patient tolerated the procedure well was taken to the recovery room stable condition.
[2023-07-19 14:24] VITALS: PULSE 58
[2023-07-19 15:12] VITALS: BP 119/73
== END 2023-07-19 15:03 | disposition home or self-care (01) ==
LOC: OR 10:51
PROVIDERS: ATTEND Urology
DX: C61 Malignant neoplasm of prostate (principal); E78.5 Hyperlipidemia, unspecified; I10 Essential (primary) hypertension; M19.90 Unspecified osteoarthritis, unspecified site; H91.90 Unspecified hearing loss, unspecified ear; F10.90 Alcohol use, unspecified, uncomplicated; Z87.891 Personal history of nicotine dependence; Z79.899 Other long term (current) drug therapy
CPT/HCPCS: 55700; 88305; J2250; J1580; J3010; J2704

== ENCOUNTER → 2023-08-20 | Outpatient (CLI) | payer MEDICARE ==
--- NOTE | 2023-08-28 07:43 | PE ---
EXAMINATION TYPE: PET CT fusion skull to thigh DATE OF EXAM: 08/20/2023 COMPARISON: None Prior PET/CT: None HISTORY: Prostate cancer TECHNIQUE: Following the intravenous administration of 5.53 mCi of gallium 28, whole body images are performed from the skull base to the midthigh. Images are reviewed on the computer in the coronal, axial, and sagittal planes. Reconstructed rotating images are created on independent workstation and reviewed on the computer. A localization and attenuation correction CT is performed in conjunction with the PET scan. DLP: 508.12 mGycm SCAN: Initial FINDINGS: NECK: There is normal uptake within the salivary glands. There is some asymmetric uptake in the lower hand sizer space adjacent to the musculature anterior to the left parotid gland this is well above the submandibular glands. Some ectopic salivary tissue may be present. No severely unusual location for a metastatic lesion THORAX: No abnormal uptake ABDOMEN: No abnormal uptake PELVIS: There is some subtle uptake within the right lateral prostate with an SUV of 5.51 this may be the patient's primary. Prostate appears prominent OSSEOUS STRUCTURES: No abnormal uptake LOCALIZATION CT: Prominent prostate COMPARISON: None IMPRESSION: 1. Prominent prostate with some focal uptake in the right lateral aspect may be the patient's primary . 2. No suspicious metastatic disease 3. Solitary soft tissue uptake anterior to the left parotid lateral adjacent to the hand sizer muscle s felt to more likely be ectopic salivary tissue. Solitary metastasis at this location would be unusu al.
== END | disposition home or self-care (01) ==
LOC: RADPETMAIN 13:45
PROVIDERS: ATTEND Urology
DX: C61 Malignant neoplasm of prostate (principal)
CPT/HCPCS: 78815; A9596

== ENCOUNTER → 2023-09-21 | Outpatient (CLI) | payer MEDICARE ==
[2023-09-21 15:17] LABS: Appearance,Urine Clear (Clear); Bilirubin,Urine Negative (Negative); Blood,Urine Negative (Negative); Color,Urine Yellow (Yellow); Ketones,Urine Negative (Negative); Nitrite,Urine Negative (Negative); PH, Urine 7.5; Specific Gravity,Urine 1.013 (1.001-1.030); Urobilinogen,Urine 0.2 E.U./DL
[2023-09-21 15:33] LABS: Basophils # (A) 0.03 X 10*3/uL (0.00-0.10); Basophils % (A) 0.5 %; Blood Urea Nitrogen 16.5 mg/dL (9.0-27.0); Calcium 9.8 mg/dL (8.7-10.3); Carbon Dioxide 31.3 mmol/L (21.6-31.8); Chloride 88 mmol/L (96-109); Eosinophils # (A) 0.15 X 10*3/uL (0.04-0.35); Eosinophils % (A) 2.5 %; Glucose 128 mg/dL (70-110); HGB 13.6 g/dL (13.0-17.0); Lymphocytes # (A) 1.38 X 10*3/uL (0.90-5.00); Lymphocytes % (A) 22.6 %; MCH 31.8 pg (27.0-32.0); MCV 93.5 FL (80.0-97.0); Mean Platelet Volume 9.2 FL (9.5-12.2); Monocytes # (A) 0.62 X 10*3/uL (0.20-1.00); Monocytes % (A) 10.2 %; NRBC Per 100 WBC 0 X 10*3/uL (0.00-0.01); Neutrophils # (A) 3.88 X 10*3/uL (1.80-7.70); Neutrophils % (A) 63.5 %; Platelet Count 344 X 10*3/uL (140-440); Potassium 3.5 mmol/L (3.5-5.5); RBC 4.28 X 10*6/uL (4.40-5.60); RDW 12.4 % (11.5-14.5); Sodium 132 mmol/L (135-145)
== END | disposition home or self-care (01) ==
LOC: LABPAT 10:40
PROVIDERS: ATTEND Urology
DX: Z01.812 Encounter for preprocedural laboratory examination (principal); C61 Malignant neoplasm of prostate
CPT/HCPCS: 36415; 80048; 81003; 85025; 87086

== ENCOUNTER 2023-09-27 11:05 | Day surgery (SDC) | payer MEDICARE ==
--- NOTE | 2023-09-22 08:45 | P.GSHP ---
History of Present Illness H&P Date: 09/22/23 Chief Complaint: Prostate cancer The patient is a 78-year-old white male with recently diagnosed prostate cancer. 2 of 12 biopsies showed [place] 78 adenocarcinoma of the prostate. His PSA level was 9.4. His metastatic evaluation was negative. He has elected to be treated with androgen deprivation therapy (started on September 13) and IMRT. He now comes for SpaceOAR implant. - Cardiovascular Cardiovascular: Reports high blood pressure - Genitourinary (Male) Genitourinary: Reports urinary frequency Past Medical History Past Medical History: Eye Disorder, Hearing Disorder / Deafness, Hyperlipidemia, Hypertension, Osteoarthritis (OA), Prostate Disorder Additional Past Medical History / Comment(s): Macular degeneration/with i njections, elevated PSA level. History of Any Multi-Drug Resistant Organisms: None Reported Past Surgical History: No Surgical Hx Reported Additional Past Surgical History / Comment(s): Prostate biopsies Past Anesthesia/Blood Transfusion Reactions: No Reported Reaction Additional Past Alcohol Use History / Comment(s): occasional alcohol use. Drinks 3-4 times a week - Past Family History Mother Family Medical History: Diabetes Mellitus Father Family Medical History: Myocardial Infarction ([place]) Brother(s) Family Medical History: No Reported History Son(s) Family Medical History: No Reported History Medications and Allergies Home Medications Medication Instructions Recorded Confirmed Type Atorvastatin Calcium [Lipitor] 40 mg PO QAM 05/17/20 07/19/23 History Metoprolol Tartrate [Lopressor] 50 mg PO BID 05/17/20 07/19/23 History Telmisartan [Micardis] 80 mg PO QAM 05/17/20 07/19/23 History hydrALAZINE HCL [Apresoline] 50 mg PO BID 05/17/20 07/19/23 History Ezetimibe [Zetia] 10 mg PO QAM 07/16/23 07/19/23 History Montelukast [Singulair] 10 mg PO HS 07/16/23 07/19/23 History Multivitamins, Thera [Multivitamin 1 tab PO QAM 07/16/23 07/19/23 History (formulary)] Vit C/E/Zn/Coppr/Lutein/Zeaxan 2 cap PO BID 07/16/23 07/19/23 History [Preservision Areds 2 Softgel] hydroCHLOROthiazide 25 mg PO QAM 07/16/23 07/19/23 History Allergies Allergy/AdvReac Type Severity Reaction Status Date / Time adhesive tape AdvReac skin Verified 07/19/23 11:59 irritation Surgical - Exam - General well developed, well nourished, no distress - Respiratory normal respiratory effort - Abdomen Abdomen: soft, non tender, no guarding, no rigid, no rebound - Genitourinary normal penis with no external lesions, testicles non-tender - Rectum Rectum: normal sphincter tone, no masses, other (Prostate mildly enlarged with nodule at left base) - Psychiatric oriented to time, oriented to person, oriented to place, speech is normal, memory intact Assessment and Plan (1) Malignant neoplasm of prostate Status: Acute Code(s): C61 - MALIGNANT NEOPLASM OF PROSTATE SNOMED Code(s): 805261985 Plan: The SpaceOar implant has been reviewed in detail with the patient. He understands that the rationale for this is to create separation between the prostate and rectum, thus reducing the risk of radiation proctitis. The material begins to breakdown 12-13 weeks following implant, and is reabsorbed by the body. Risks include anesthesia, bleeding, infection, and perineal discomfort. He understands that if the rectal wall is perforated the procedure will need to be aborted.
[2023-09-25 15:00] VITALS: BMI 31.5
[~2023-09-27 11:05] MED LIST changes: +HYDROmorphone 0.5 MG/0.5 ML SYRINGE IVP PRN; +LIDOCAINE 1% (10MG/ML) FOR IV START INTRADERMA PRN; +MIDAZOLAM 2 MG/2 ML VIAL IV PRN; +Pre Op ABX Message 1 EACH MISC MISCELLANE ONE; -fentaNYL (PF) 50 MCG/ML 2 ML AMP IV PRN; +fentaNYL (PF) 50 MCG/ML 2 ML AMP IVP PRN
[2023-09-27 11:37] VITALS: TEMP 97.7
[2023-09-27] MEDS: LACTATED RINGERS 1,000 ML IV SCH (11:49)
[2023-09-27] MEDS: ONDANSETRON 4 MG/2 ML VIAL IVP ONE (11:50)
[2023-09-27] MEDS: DEXAMETHASONE SOD PHOSPHATE 4 MG/ML 1 ML VIAL IV ONE (11:50)
[2023-09-27] MEDS: IV FLUID CONTINUATION 1,000 ML IV ONE (11:52)
[2023-09-27] MEDS ORDERED: ceFAZolin 1 GM/50 ML BAG (PMX) ONE (13:38)
[2023-09-27] MEDS ORDERED: MIDAZOLAM 2 MG/2 ML VIAL ONE (13:38)
[2023-09-27] MEDS ORDERED: fentaNYL (PF) 50 MCG/ML 2 ML AMP ONE (13:38)
[2023-09-27] MEDS ORDERED: PROPOFOL 10 MG/ML 20 ML VIAL IV ONE (13:38)
[2023-09-27] MEDS: SODIUM CHLORIDE 0.9% 50 ML with ceFAZolin 2,000 MG IV ONE (13:43)
[2023-09-27] MEDS: LIDOCAINE 2% INJ 20 MG/ML SQ ONE (14:01)
[2023-09-27 15:05] VITALS: BP 130/90; PULSE 52; RESP 16
--- NOTE | 2023-09-27 15:53 | P.OP ---
Date of Procedure: 09/27/23 Preoperative Diagnosis: Adenocarcinoma of the prostate Postoperative Diagnosis: Same Procedure(s) Performed: SpaceOAR implant Anesthesia: MAC Surgeon: Braxton Jimenez Estimated Blood Loss (ml): 5 IV fluids (ml): 200 Pathology: none sent Condition: stable Disposition: PACU Indications for Procedure: The patient is a 78-year-old white male with recently diagnosed prostate cancer. 2 of 12 biopsies showed [place] 78 adenocarcinoma of the prostate. His PSA level was 9.4. His metastatic evaluation was negative. He has elected to be treated with androgen deprivation therapy (started on September 13) and IMRT. He now comes for SpaceOAR implant. Operative Findings: Modest separation created between prostate and rectum. Description of Procedure: The patient was taken to the operating room and placed in the dorsolithotomy position, with his legs supported in Chris stirrups. The external genitalia was prepped and draped sterilely. The Addy transrectal ultrasound probe was placed intrarectally. The prostate was imaged. The probe was then placed within the stabilizing stand. A spinal needle was advanced under ultrasonic guidance to the level of the urogenital diaphragm, and lidocaine was used to infiltrate the tissues as the needle was withdrawn. Next, the SpaceOAR needle was passed through the midline of the perineum, 1-2 cm anterior to the anal opening. The needle was slowly advanced under ultrasonic guidance until the needle tip was located within the fat plane between the prostate and rectum, at the level of the mid prostate gland. The needle was confirmed to be midline on the axial imaging. A small amount of normal saline was injected for hydrodissection. Next, the SpaceOAR components were mixed and loaded into the Y connector per protocol. The Y connector was then connected to the needle, and the components were injected slowly over a course of approximately 12 seconds. A total of [10] ml was injected. Suboptimal separation was created between the prostate and rectum, perhaps due to the patient's left-sided prostate nodule which likely extends extraprostatic. It should be noted that at no point was there any concern of rectal perforation. The needle was withdrawn, as well as the transrectal ultrasound probe, and the procedure was terminated. The patient tolerated the procedure well and was taken to the recovery room in stable condition.
== END 2023-09-27 15:10 | disposition home or self-care (01) ==
LOC: OR 11:05
PROVIDERS: ATTEND Urology
DX: C61 Malignant neoplasm of prostate (principal); E78.5 Hyperlipidemia, unspecified; I10 Essential (primary) hypertension; M19.90 Unspecified osteoarthritis, unspecified site; H91.90 Unspecified hearing loss, unspecified ear; H35.30 Unspecified macular degeneration; Z88.8 Allergy status to other drugs, medicaments and biological substances; Z85.46 Personal history of malignant neoplasm of prostate; Z79.899 Other long term (current) drug therapy; Z79.82 Long term (current) use of aspirin
CPT/HCPCS: 55874; C1889; J2001; J2250; J1100; J2405; J0690 ×2; J3010; J2704

== ENCOUNTER → 2024-02-20 | Outpatient (CLI) | payer MEDICARE ==
[2024-02-20 15:44] LABS: Prostate Specific Antigen <0.01 ng/mL (0.000-6.500); Testosterone <10.00 ng/dL (86.98-780.10)
== END | disposition home or self-care (01) ==
LOC: LABWHC1 10:56
PROVIDERS: ATTEND Radiology Radiation Oncology
DX: C61 Malignant neoplasm of prostate (principal); Z87.891 Personal history of nicotine dependence
CPT/HCPCS: 36415; 84153; 84403

== ENCOUNTER → 2024-05-01 | Outpatient (CLI) | payer MEDICARE ==
[2024-05-01 19:23] LABS: Prostate Specific Antigen <0.01 ng/mL (0.000-6.500); Testosterone <10.00 ng/dL (86.98-780.10)
== END | disposition home or self-care (01) ==
LOC: LABWHC1 11:11
PROVIDERS: ATTEND Radiology Radiation Oncology
DX: C61 Malignant neoplasm of prostate (principal); Z87.891 Personal history of nicotine dependence
CPT/HCPCS: 36415; 84153; 84403